=== PATIENT | female | born 1960 | race Caucasian/White ===

== ENCOUNTER 2017-03-04 20:04 | Inpatient (IN) | payer MEDICAID, OTHER ==
[~2017-03-04] VITALS: Ht 147.3 cm; Wt 59.0 kg
[~2017-03-04 20:04] MED LIST: BENZ1TAB10 PO; LEVO25TA9 PO; PROP10TA73 PO; RISP3 PO
[2017-03-04 20:46] LABS: ANION GAP 9 mmol/L (8-16); CALCIUM, TOTAL 8.4 mg/dL (8.8-10.5); CARBON DIOXIDE 28 mmol/L (22-29); CHLORIDE 103 mmol/L (98-107); CREATININE 0.71 mg/dL (0.60-1.30); GLOMERULAR FILTR. RATE CALC > 60 mL/min (>60); POTASSIUM 3.7 mmol/L (3.5-5.1); SODIUM SERUM 140 mmol/L (136-145); UREA NITROGEN, BLOOD 12 mg/dL (7-18)
[2017-03-04 20:47] LABS: BASOPHILS % (AUTO) 0.9 % (0.0-2.0); EOSINOPHILS % (AUTO) 7.6 % (1.0-6.0); HEMATOCRIT 36.7 % (36-46); HEMOGLOBIN 12.6 g/dL (12.0-16.0); LYMPHOCYTES # (AUTO) 1.7 K/uL (1.0-4.8); LYMPHOCYTES % (AUTO) 30.6 % (22.0-44.0); MEAN CORPUSCULAR HEMOGLOBIN 31.9 pg (26.0-34.0); MEAN CORPUSCULAR HGB CONC 34.2 G/dL (31.0-37.0); MEAN CORPUSCULAR VOLUME 93 fL (80-100); MONOCYTES # (AUTO) 0.5 K/uL (0.1-1.0); MONOCYTES % (AUTO) 9.4 % (2.0-9.0); NEUTROPHILS # (AUTO) 2.9 K/uL (1.8-7.7); NEUTROPHILS % (AUTO) 51.5 % (40.0-70.0); PLATELET COUNT (AUTO) 408 K/uL (150-450); RED BLOOD CELL COUNT(AUTO) 3.95 MIL/uL (4.00-5.20); RED CELL DISTRIBUTION WIDTH 12.7 % (11.5-14.5); WHITE BLOOD COUNT (AUTO) 5.6 K/uL (4.5-11.0)
[2017-03-04 20:54] LABS: ALANINE AMINOTRANSFERASE 20 U/L (12-78); ALBUMIN 3.9 g/dL (3.4-5.0); ASPARTATE AMINOTRANSFERASE 16 U/L (15-37); BILIRUBIN,TOTAL 0.3 mg/dL (0.1-1.0); TOTAL PROTEIN, SERUM 7.7 g/dL (6.4-8.2)
[2017-03-04 23:37] LABS: APPEARANCE,URINE CLEAR (CLEAR); GLUCOSE, URINE (UA) NEGATIVE (NEGATIVE); KETONES,URINE NEGATIVE (NEGATIVE); LEUKOCYTE ESTERASE ,URINE NEGATIVE (NEGATIVE); OCCULT BLOOD,URINE NEGATIVE (NEGATIVE); PH,URINE 5.5 (5.0-8.0); PROTEIN,URINE NEGATIVE (NEGATIVE)
[2017-03-04 23:41] LABS: ADD UA MICROSCOPIC NO
[2017-03-05] MEDS: ZOLPIDEM TARTRATE 10 MG TABLET PO PRN (01:00)
[2017-03-05] MEDS: HALOPERIDOL 5 MG TABLET PO PRN (01:03)
[2017-03-05 01:07] VITALS: BP 125/88
[2017-03-05 01:27] VITALS: BP 125/88
[2017-03-05] MEDS: LORazepam 2 MG TABLET PO PRN (03:34)
[2017-03-05] MEDS ORDERED: PNEUMOCOCCAL VACCINE POLYVALENT 0.5 ML VIAL [PPSV23] IM ONE (03:45)
[2017-03-05] MEDS ORDERED: CloNIDine HCL 0.1 MG TABLET PO PRN (10:00)
[2017-03-05] MEDS ORDERED: LOPERAMIDE HCL 2 MG CAPSULE PO PRN (10:00)
[2017-03-05] MEDS ORDERED: MAGNESIUM HYDROXIDE SUSPENSION 30 ML UDCUP PO PRN (10:00)
[2017-03-05] MEDS ORDERED: ALBUTEROL SULFATE HFA 90 MCG/PUFF 8 GM INHALER IH PRN (10:00)
[2017-03-05] MEDS ORDERED: BACITRACIN 28.4 GM OINTMENT TP PRN (10:00)
[2017-03-05] MEDS ORDERED: PETROLATUM,WHITE 71 GM JELLY TP PRN (10:00)
[2017-03-05] MEDS ORDERED: BENZOCAINE/MENTHOL LOZENGE [8 LOZENGES/PACKET] MM PRN (10:00)
[2017-03-05] MEDS ORDERED: ONDANSETRON HCL 4 MG TABLET PO PRN (10:00)
[2017-03-05 10:43] VITALS: BP 140/71
[2017-03-05] MEDS: IBUPROFEN 600 MG TABLET PO PRN (12:34)
[2017-03-05] MEDS: RisperiDONE 3 MG TABLET PO SCH (16:37)
[2017-03-05] MEDS: BENZTROPINE MESYLATE 1 MG TABLET PO SCH (16:37)
[2017-03-06] MEDS: ZOLPIDEM TARTRATE 10 MG TABLET PO PRN (00:30)
[2017-03-06] MEDS: LORazepam 2 MG TABLET PO PRN ×3 (00:30→16:37)
[2017-03-06 00:55] VITALS: BP 135/65
[2017-03-06] MEDS: LEVOTHYROXINE SODIUM 25 MCG TABLET PO SCH (06:54)
[2017-03-06 08:00] VITALS: BP 126/90
[2017-03-06] MEDS: BENZTROPINE MESYLATE 1 MG TABLET PO SCH ×2 (08:13→16:10)
[2017-03-06] MEDS: RisperiDONE 3 MG TABLET PO SCH ×2 (08:13→16:10)
[2017-03-06] MEDS: IBUPROFEN 600 MG TABLET PO PRN ×2 (10:42→21:58)
[2017-03-06 13:29] VITALS: BP 116/75
[2017-03-06 16:19] VITALS: BP 118/62
[2017-03-07 02:47] VITALS: BP 136/90
[2017-03-07] MEDS: ZOLPIDEM TARTRATE 10 MG TABLET PO PRN (02:49)
[2017-03-07] MEDS: IBUPROFEN 600 MG TABLET PO PRN ×3 (05:11→20:24)
[2017-03-07] MEDS: LEVOTHYROXINE SODIUM 25 MCG TABLET PO SCH (06:15)
[2017-03-07] MEDS: LORazepam 2 MG TABLET PO PRN ×2 (08:25→12:37)
[2017-03-07] MEDS: BENZTROPINE MESYLATE 1 MG TABLET PO SCH ×2 (08:25→15:53)
[2017-03-07] MEDS: RisperiDONE 3 MG TABLET PO SCH ×2 (08:25→15:53)
[2017-03-07 09:00] VITALS: BP 107/60
[2017-03-07] MEDS: MAG HYDROX/AL HYDROX/SIMETH ES 30 ML SUSPENSION UDCUP PO PRN (12:37)
[2017-03-07 16:13] VITALS: BP 111/66
[2017-03-07 20:22] VITALS: BP 114/66
[2017-03-07 21:24] VITALS: BP 112/68
[2017-03-08 00:51] VITALS: BP 139/62
[2017-03-08] MEDS: ZOLPIDEM TARTRATE 10 MG TABLET PO PRN ×2 (00:52→22:50)
[2017-03-08] MEDS: MAG HYDROX/AL HYDROX/SIMETH ES 30 ML SUSPENSION UDCUP PO PRN (01:21)
[2017-03-08] MEDS: IBUPROFEN 600 MG TABLET PO PRN ×2 (05:32→16:43)
[2017-03-08] MEDS: LEVOTHYROXINE SODIUM 25 MCG TABLET PO SCH (06:36)
[2017-03-08] MEDS: BENZTROPINE MESYLATE 1 MG TABLET PO SCH ×2 (08:42→16:43)
[2017-03-08] MEDS: RisperiDONE 3 MG TABLET PO SCH ×2 (08:42→16:43)
[2017-03-08 09:00] VITALS: BP 113/68
[2017-03-08 16:00] VITALS: BP 138/81
[2017-03-08] MEDS: LORazepam 2 MG TABLET PO PRN (16:43)
[2017-03-09] MEDS: LORazepam 2 MG TABLET PO PRN (04:05)
[2017-03-09] MEDS: LEVOTHYROXINE SODIUM 25 MCG TABLET PO SCH (06:30)
[2017-03-09 06:40] VITALS: BP 118/78
[2017-03-09 08:55] VITALS: BP 118/63
[2017-03-09] MEDS: RisperiDONE 3 MG TABLET PO SCH ×2 (09:56→16:25)
[2017-03-09] MEDS: BENZTROPINE MESYLATE 1 MG TABLET PO SCH ×2 (09:56→16:25)
[2017-03-09 16:40] VITALS: BP 121/62
[2017-03-10 02:49] VITALS: BP 113/82
[2017-03-10] MEDS: IBUPROFEN 600 MG TABLET PO PRN ×3 (02:52→21:26)
[2017-03-10] MEDS: LEVOTHYROXINE SODIUM 25 MCG TABLET PO SCH (06:30)
[2017-03-10 08:10] VITALS: BP 113/78
[2017-03-10] MEDS: BENZTROPINE MESYLATE 1 MG TABLET PO SCH ×2 (10:27→16:18)
[2017-03-10] MEDS: RisperiDONE 3 MG TABLET PO SCH ×2 (10:27→16:18)
[2017-03-10 16:00] VITALS: BP 120/75
[2017-03-10] MEDS: LORazepam 2 MG TABLET PO PRN (16:18)
[2017-03-10] MEDS: ZOLPIDEM TARTRATE 10 MG TABLET PO PRN (21:26)
[2017-03-11 05:43] VITALS: BP 117/75
[2017-03-11] MEDS: LEVOTHYROXINE SODIUM 25 MCG TABLET PO SCH (06:30)
[2017-03-11] MEDS: IBUPROFEN 600 MG TABLET PO PRN (06:32)
[2017-03-11 08:00] VITALS: BP 133/57
[2017-03-11] MEDS: BENZTROPINE MESYLATE 1 MG TABLET PO SCH ×2 (09:00→16:51)
[2017-03-11] MEDS: RisperiDONE 3 MG TABLET PO SCH ×2 (09:00→16:51)
[2017-03-11 16:00] VITALS: BP 114/68
[2017-03-11] MEDS: LORazepam 2 MG TABLET PO PRN (16:54)
[2017-03-11] MEDS: ZOLPIDEM TARTRATE 10 MG TABLET PO PRN (22:12)
[2017-03-12 05:53] VITALS: BP 128/65
[2017-03-12] MEDS: IBUPROFEN 600 MG TABLET PO PRN ×2 (05:55→14:33)
[2017-03-12] MEDS: LEVOTHYROXINE SODIUM 25 MCG TABLET PO SCH (05:57)
[2017-03-12 08:24] VITALS: BP 109/69
[2017-03-12] MEDS: BENZTROPINE MESYLATE 1 MG TABLET PO SCH ×2 (08:30→16:27)
[2017-03-12] MEDS: RisperiDONE 3 MG TABLET PO SCH ×2 (08:30→16:27)
[2017-03-12 14:33] VITALS: BP 110/86
[2017-03-12 16:18] VITALS: BP 112/68
[2017-03-13] MEDS: IBUPROFEN 600 MG TABLET PO PRN ×2 (04:45→18:37)
[2017-03-13 04:47] VITALS: BP 11/68
[2017-03-13] MEDS: LEVOTHYROXINE SODIUM 25 MCG TABLET PO SCH (06:59)
[2017-03-13 08:13] VITALS: BP 109/64
[2017-03-13] MEDS: BENZTROPINE MESYLATE 1 MG TABLET PO SCH ×2 (10:12→16:27)
[2017-03-13] MEDS: RisperiDONE 3 MG TABLET PO SCH ×2 (10:12→16:27)
[2017-03-13 16:07] VITALS: BP 115/84
[2017-03-13] MEDS: LORazepam 2 MG TABLET PO PRN (16:27)
[2017-03-13 18:38] VITALS: BP 118/75
[2017-03-14 03:24] VITALS: BP 114/67
[2017-03-14] MEDS: LEVOTHYROXINE SODIUM 25 MCG TABLET PO SCH (06:31)
[2017-03-14 08:22] VITALS: BP 99/64
[2017-03-14] MEDS: BENZTROPINE MESYLATE 1 MG TABLET PO SCH ×2 (08:50→16:21)
[2017-03-14] MEDS: RisperiDONE 3 MG TABLET PO SCH ×2 (08:50→16:21)
[2017-03-14 08:51] VITALS: BP 102/70
[2017-03-14] MEDS: IBUPROFEN 600 MG TABLET PO PRN ×2 (08:51→18:41)
[2017-03-14] MEDS: LORazepam 2 MG TABLET PO PRN (16:21)
[2017-03-14 18:40] VITALS: BP 139/99
[2017-03-14] MEDS: HALOPERIDOL 5 MG TABLET PO PRN (18:42)
[2017-03-14 21:24] VITALS: BP 132/88
[2017-03-14] MEDS: ACETAMINOPHEN 325 MG TABLET PO PRN (21:26)
[2017-03-15 06:05] VITALS: BP 108/61
[2017-03-15] MEDS: LORazepam 2 MG TABLET PO PRN ×2 (06:07→16:27)
[2017-03-15] MEDS: HALOPERIDOL 5 MG TABLET PO PRN (06:07)
[2017-03-15] MEDS: IBUPROFEN 600 MG TABLET PO PRN (06:07)
[2017-03-15] MEDS: LEVOTHYROXINE SODIUM 25 MCG TABLET PO SCH (06:39)
[2017-03-15 08:12] VITALS: BP 99/48
[2017-03-15] MEDS: BENZTROPINE MESYLATE 1 MG TABLET PO SCH ×2 (09:02→16:27)
[2017-03-15] MEDS: RisperiDONE 3 MG TABLET PO SCH ×2 (09:02→16:27)
[2017-03-15 16:11] VITALS: BP 113/65
[2017-03-16 02:26] VITALS: BP 138/68
[2017-03-16] MEDS: IBUPROFEN 600 MG TABLET PO PRN (02:31)
[2017-03-16] MEDS: LORazepam 2 MG TABLET PO PRN (02:31)
[2017-03-16] MEDS: ACETAMINOPHEN 325 MG TABLET PO PRN (06:10)
[2017-03-16] MEDS: LEVOTHYROXINE SODIUM 25 MCG TABLET PO SCH (06:10)
[2017-03-16 08:00] VITALS: BP 89/55
[2017-03-16] MEDS: RisperiDONE 3 MG TABLET PO SCH ×2 (08:41→16:06)
[2017-03-16] MEDS: BENZTROPINE MESYLATE 1 MG TABLET PO SCH ×2 (08:41→16:06)
[2017-03-16 16:14] VITALS: BP 120/67
[2017-03-17 01:33] VITALS: BP 103/64
[2017-03-17] MEDS: IBUPROFEN 600 MG TABLET PO PRN ×2 (01:47→14:04)
[2017-03-17] MEDS: ZOLPIDEM TARTRATE 10 MG TABLET PO PRN (01:47)
[2017-03-17] MEDS: LEVOTHYROXINE SODIUM 25 MCG TABLET PO SCH (06:25)
[2017-03-17 08:55] VITALS: BP 103/59
[2017-03-17] MEDS: BENZTROPINE MESYLATE 1 MG TABLET PO SCH ×2 (08:55→16:17)
[2017-03-17] MEDS: RisperiDONE 3 MG TABLET PO SCH ×2 (08:55→16:17)
[2017-03-17 14:00] VITALS: BP 110/66
[2017-03-17 15:04] VITALS: BP 106/68
[2017-03-17 16:14] VITALS: BP 110/77
[2017-03-17] MEDS: LORazepam 2 MG TABLET PO PRN (17:55)
[2017-03-18 04:06] VITALS: BP 111/63
[2017-03-18] MEDS: IBUPROFEN 600 MG TABLET PO PRN (04:17)
[2017-03-18] MEDS: LEVOTHYROXINE SODIUM 25 MCG TABLET PO SCH (06:15)
[2017-03-18 08:36] VITALS: BP 100/68
[2017-03-18] MEDS: BENZTROPINE MESYLATE 1 MG TABLET PO SCH ×2 (08:41→16:23)
[2017-03-18] MEDS: RisperiDONE 3 MG TABLET PO SCH ×2 (09:20→16:24)
[2017-03-18] MEDS: LORazepam 2 MG TABLET PO PRN ×2 (11:45→16:24)
[2017-03-18 16:00] VITALS: BP 101/68
[2017-03-19 03:39] VITALS: BP 103/61
[2017-03-19] MEDS: IBUPROFEN 600 MG TABLET PO PRN ×2 (03:48→16:34)
[2017-03-19] MEDS: LEVOTHYROXINE SODIUM 25 MCG TABLET PO SCH (06:15)
[2017-03-19] MEDS: RisperiDONE 3 MG TABLET PO SCH ×2 (08:53→16:34)
[2017-03-19] MEDS: BENZTROPINE MESYLATE 1 MG TABLET PO SCH ×2 (08:53→16:34)
[2017-03-19 08:59] VITALS: BP 100/58
[2017-03-19 16:34] VITALS: BP 112/63
[2017-03-19] MEDS: LORazepam 2 MG TABLET PO PRN (18:01)
[2017-03-20] MEDS: IBUPROFEN 600 MG TABLET PO PRN ×2 (02:41→16:29)
[2017-03-20 02:42] VITALS: BP 107/71
[2017-03-20] MEDS: LEVOTHYROXINE SODIUM 25 MCG TABLET PO SCH (06:15)
[2017-03-20 08:39] VITALS: BP 100/56
[2017-03-20] MEDS: RisperiDONE 3 MG TABLET PO SCH ×2 (09:50→17:50)
[2017-03-20] MEDS: BENZTROPINE MESYLATE 1 MG TABLET PO SCH ×2 (09:50→17:50)
[2017-03-20 16:29] VITALS: BP 124/73
[2017-03-20] MEDS: LORazepam 2 MG TABLET PO PRN (18:57)
[2017-03-21 05:32] VITALS: BP 101/72
[2017-03-21] MEDS: LEVOTHYROXINE SODIUM 25 MCG TABLET PO SCH (05:34)
[2017-03-21] MEDS: IBUPROFEN 600 MG TABLET PO PRN (05:34)
[2017-03-21 08:32] VITALS: BP 112/67
[2017-03-21] MEDS: RisperiDONE 3 MG TABLET PO SCH ×2 (08:32→16:27)
[2017-03-21] MEDS: LORazepam 2 MG TABLET PO PRN ×2 (08:32→16:28)
[2017-03-21] MEDS: BENZTROPINE MESYLATE 1 MG TABLET PO SCH ×2 (08:32→16:27)
[2017-03-21 16:14] VITALS: BP 101/75
[2017-03-22] MEDS: LORazepam 2 MG TABLET PO PRN ×3 (02:41→16:21)
[2017-03-22] MEDS: IBUPROFEN 600 MG TABLET PO PRN (02:42)
[2017-03-22 02:43] VITALS: BP 123/63
[2017-03-22] MEDS: LEVOTHYROXINE SODIUM 25 MCG TABLET PO SCH (06:28)
[2017-03-22 08:20] VITALS: BP 122/71
[2017-03-22] MEDS: RisperiDONE 3 MG TABLET PO SCH ×2 (08:28→16:20)
[2017-03-22] MEDS: BENZTROPINE MESYLATE 1 MG TABLET PO SCH ×2 (08:28→16:20)
[2017-03-22 16:30] VITALS: BP 119/79
[2017-03-23] MEDS: LEVOTHYROXINE SODIUM 25 MCG TABLET PO SCH (06:17)
[2017-03-23 07:33] VITALS: BP 124/72
[2017-03-23 09:10] VITALS: BP 92/63
[2017-03-23] MEDS: RisperiDONE 3 MG TABLET PO SCH ×2 (09:53→16:10)
[2017-03-23] MEDS: BENZTROPINE MESYLATE 1 MG TABLET PO SCH ×2 (09:53→16:10)
[2017-03-23] MEDS: IBUPROFEN 600 MG TABLET PO PRN (11:20)
[2017-03-23] MEDS: LORazepam 2 MG TABLET PO PRN (16:13)
[2017-03-23 16:16] VITALS: BP 112/65
[2017-03-24 05:03] VITALS: BP 134/72
[2017-03-24] MEDS: IBUPROFEN 600 MG TABLET PO PRN ×2 (05:20→16:27)
[2017-03-24] MEDS: LEVOTHYROXINE SODIUM 75 MCG TABLET PO SCH (07:16)
[2017-03-24 08:14] VITALS: BP 137/87
[2017-03-24] MEDS: RisperiDONE 3 MG TABLET PO SCH ×2 (08:56→17:06)
[2017-03-24] MEDS: BENZTROPINE MESYLATE 1 MG TABLET PO SCH ×2 (08:56→17:06)
[2017-03-24 16:11] VITALS: BP 127/73
[2017-03-24 17:27] VITALS: BP 124/75
[2017-03-24 20:04] VITALS: BP 122/76
[2017-03-24] MEDS: ACETAMINOPHEN 325 MG TABLET PO PRN (20:06)
[2017-03-24] MEDS: ZOLPIDEM TARTRATE 10 MG TABLET PO PRN (20:59)
[2017-03-25 06:10] VITALS: BP 116/73
[2017-03-25] MEDS: IBUPROFEN 600 MG TABLET PO PRN ×2 (06:13→20:25)
[2017-03-25] MEDS: LEVOTHYROXINE SODIUM 75 MCG TABLET PO SCH (06:53)
[2017-03-25 08:49] VITALS: BP 102/53
[2017-03-25] MEDS: BENZTROPINE MESYLATE 1 MG TABLET PO SCH ×2 (09:44→16:12)
[2017-03-25] MEDS: RisperiDONE 3 MG TABLET PO SCH ×2 (09:44→16:12)
[2017-03-25] MEDS: LORazepam 2 MG TABLET PO PRN (09:45)
[2017-03-25 16:20] VITALS: BP 113/69
[2017-03-25 20:23] VITALS: BP 112/70
[2017-03-26 05:24] VITALS: BP 125/86
[2017-03-26] MEDS: IBUPROFEN 600 MG TABLET PO PRN ×2 (05:45→16:02)
[2017-03-26] MEDS: LEVOTHYROXINE SODIUM 75 MCG TABLET PO SCH (06:50)
[2017-03-26 08:17] VITALS: BP 99/57
[2017-03-26] MEDS: BENZTROPINE MESYLATE 1 MG TABLET PO SCH ×2 (08:20→16:02)
[2017-03-26] MEDS: RisperiDONE 3 MG TABLET PO SCH ×2 (08:20→16:02)
[2017-03-26 10:45] VITALS: BP 118/70
[2017-03-26] MEDS: ACETAMINOPHEN 325 MG TABLET PO PRN (10:49)
[2017-03-26 16:03] VITALS: BP 109/75
[2017-03-26] MEDS: LORazepam 2 MG TABLET PO PRN (20:11)
[2017-03-27 01:53] VITALS: BP 120/70
[2017-03-27] MEDS: IBUPROFEN 600 MG TABLET PO PRN ×3 (01:56→17:01)
[2017-03-27] MEDS: LEVOTHYROXINE SODIUM 75 MCG TABLET PO SCH (06:46)
[2017-03-27] MEDS: RisperiDONE 3 MG TABLET PO SCH ×2 (08:13→17:02)
[2017-03-27] MEDS: BENZTROPINE MESYLATE 1 MG TABLET PO SCH ×2 (08:13→17:01)
[2017-03-27 08:23] VITALS: BP 122/61
[2017-03-27 16:11] VITALS: BP 122/81
[2017-03-27] MEDS: LORazepam 2 MG TABLET PO PRN (20:19)
[2017-03-28 06:20] VITALS: BP 126/75
[2017-03-28] MEDS: LEVOTHYROXINE SODIUM 75 MCG TABLET PO SCH (06:23)
[2017-03-28] MEDS: IBUPROFEN 600 MG TABLET PO PRN ×3 (06:23→20:38)
[2017-03-28 08:06] VITALS: BP 104/65
[2017-03-28] MEDS: RisperiDONE 3 MG TABLET PO SCH ×2 (08:29→16:44)
[2017-03-28] MEDS: LORazepam 2 MG TABLET PO PRN (08:29)
[2017-03-28] MEDS: BENZTROPINE MESYLATE 1 MG TABLET PO SCH ×2 (08:29→16:44)
[2017-03-28 16:12] VITALS: BP 135/74
[2017-03-28] MEDS: ACETAMINOPHEN 325 MG TABLET PO PRN (16:46)
[2017-03-28 19:03] VITALS: BP 135/74
[2017-03-28] MEDS: ZOLPIDEM TARTRATE 10 MG TABLET PO PRN (20:38)
[2017-03-29 03:20] VITALS: BP 112/82
[2017-03-29] MEDS: IBUPROFEN 600 MG TABLET PO PRN ×2 (03:22→10:29)
[2017-03-29] MEDS: LEVOTHYROXINE SODIUM 75 MCG TABLET PO SCH (06:30)
[2017-03-29 08:22] VITALS: BP 108/61
[2017-03-29] MEDS: RisperiDONE 3 MG TABLET PO SCH ×2 (08:23→16:32)
[2017-03-29] MEDS: BENZTROPINE MESYLATE 1 MG TABLET PO SCH ×2 (08:23→16:33)
[2017-03-29 10:29] VITALS: BP 110/70
[2017-03-29] MEDS: LORazepam 2 MG TABLET PO PRN (11:44)
[2017-03-29 16:07] VITALS: BP 113/68
[2017-03-29] MEDS: ZOLPIDEM TARTRATE 10 MG TABLET PO PRN (23:16)
[2017-03-30 05:29] VITALS: BP 121/93
[2017-03-30] MEDS: IBUPROFEN 600 MG TABLET PO PRN ×3 (05:31→23:02)
[2017-03-30] MEDS: LORazepam 2 MG TABLET PO PRN ×2 (05:31→18:25)
[2017-03-30] MEDS: LEVOTHYROXINE SODIUM 75 MCG TABLET PO SCH (06:38)
[2017-03-30 08:12] VITALS: BP 117/96
[2017-03-30] MEDS: BENZTROPINE MESYLATE 1 MG TABLET PO SCH ×2 (08:16→16:14)
[2017-03-30] MEDS: RisperiDONE 3 MG TABLET PO SCH ×2 (09:05→16:14)
[2017-03-30] MEDS: LIDOCAINE HCL 5% TRANSDERMAL PATCH TD SCH (11:50)
[2017-03-30 16:11] VITALS: BP 110/73
[2017-03-30] MEDS: -LIDODERM PATCH NOTE- MISC SCH ×2 (20:07)
[2017-03-31 05:35] VITALS: BP 118/66
[2017-03-31] MEDS: IBUPROFEN 600 MG TABLET PO PRN (05:36)
[2017-03-31] MEDS: LEVOTHYROXINE SODIUM 75 MCG TABLET PO SCH (06:39)
[2017-03-31 08:09] VITALS: BP 98/60
[2017-03-31] MEDS: RisperiDONE 3 MG TABLET PO SCH ×2 (08:28→16:28)
[2017-03-31] MEDS: BENZTROPINE MESYLATE 1 MG TABLET PO SCH ×2 (08:28→16:28)
[2017-03-31] MEDS: LIDOCAINE HCL 5% TRANSDERMAL PATCH TD SCH (08:34)
[2017-03-31 16:09] VITALS: BP 124/60
[2017-03-31] MEDS: LORazepam 2 MG TABLET PO PRN (16:28)
[2017-03-31] MEDS: -LIDODERM PATCH NOTE- MISC SCH ×2 (20:52)
[2017-04-01 05:33] VITALS: BP 117/67
[2017-04-01] MEDS: IBUPROFEN 600 MG TABLET PO PRN ×3 (05:41→23:30)
[2017-04-01] MEDS: LORazepam 2 MG TABLET PO PRN ×2 (05:41→16:10)
[2017-04-01] MEDS: LEVOTHYROXINE SODIUM 75 MCG TABLET PO SCH (06:52)
[2017-04-01 08:10] VITALS: BP 112/69
[2017-04-01] MEDS: BENZTROPINE MESYLATE 1 MG TABLET PO SCH ×2 (08:16→16:10)
[2017-04-01] MEDS: RisperiDONE 3 MG TABLET PO SCH ×2 (08:17→16:10)
[2017-04-01] MEDS: LIDOCAINE HCL 5% TRANSDERMAL PATCH TD SCH (08:21)
[2017-04-01 16:16] VITALS: BP 110/60
[2017-04-01] MEDS: -LIDODERM PATCH NOTE- MISC SCH ×2 (21:06)
[2017-04-01] MEDS: ZOLPIDEM TARTRATE 10 MG TABLET PO PRN (23:30)
[2017-04-02 00:30] VITALS: BP 125/80
[2017-04-02] MEDS: LEVOTHYROXINE SODIUM 75 MCG TABLET PO SCH (06:58)
[2017-04-02] MEDS: CHOLECALCIFEROL (VIT D3) 1,000 UNITS TABLET PO SCH (08:02)
[2017-04-02] MEDS: BENZTROPINE MESYLATE 1 MG TABLET PO SCH ×2 (08:02→16:17)
[2017-04-02] MEDS: RisperiDONE 3 MG TABLET PO SCH ×2 (08:03→16:17)
[2017-04-02] MEDS: LIDOCAINE HCL 5% TRANSDERMAL PATCH TD SCH (08:08)
[2017-04-02 08:22] LABS: HEMATOCRIT 37.8 % (36-46); HEMOGLOBIN 12.9 g/dL (12.0-16.0); MEAN CORPUSCULAR HEMOGLOBIN 31.6 pg (26.0-34.0); MEAN CORPUSCULAR HGB CONC 34.1 G/dL (31.0-37.0); MEAN CORPUSCULAR VOLUME 93 fL (80-100); PLATELET COUNT (AUTO) 326 K/uL (150-450); RED BLOOD CELL COUNT(AUTO) 4.09 MIL/uL (4.00-5.20); WHITE BLOOD COUNT (AUTO) 4.1 K/uL (4.5-11.0)
[2017-04-02 08:57] VITALS: BP 102/61
[2017-04-02 09:05] LABS: ANION GAP 3 mmol/L (8-16); CALCIUM, TOTAL 8.9 mg/dL (8.8-10.5); CARBON DIOXIDE 31 mmol/L (22-29); CHLORIDE 102 mmol/L (98-107); CREATININE 0.65 mg/dL (0.60-1.30); GLOMERULAR FILTR. RATE CALC > 60 mL/min (>60); POTASSIUM 3.9 mmol/L (3.5-5.1); SODIUM SERUM 136 mmol/L (136-145); THYROID STIMULATING HORMONE 2.44 uIU/mL (0.36-3.74); UREA NITROGEN, BLOOD 17 mg/dL (7-18)
[2017-04-02 09:16] LABS: BASOPHILS % (MANUAL) 1 % (0-2); EOSINOPHILS % (MANUAL) 7 % (1-6); LYMPHOCYTES % (MANUAL) 33 % (22-44); TOTAL CELLS COUNTED 100
[2017-04-02] MEDS: LORazepam 2 MG TABLET PO PRN ×2 (13:59→18:00)
[2017-04-02 14:00] VITALS: BP 110/66
[2017-04-02 16:08] VITALS: BP 107/67
[2017-04-02] MEDS: MAGNESIUM OXIDE 400 MG TABLET PO SCH (16:17)
[2017-04-02] MEDS: -LIDODERM PATCH NOTE- MISC SCH ×2 (21:10)
[2017-04-03 04:05] VITALS: BP 127/84
[2017-04-03] MEDS: IBUPROFEN 600 MG TABLET PO PRN (04:05)
[2017-04-03] MEDS: LEVOTHYROXINE SODIUM 75 MCG TABLET PO SCH (06:42)
[2017-04-03 08:26] VITALS: BP 107/71
[2017-04-03] MEDS: RisperiDONE 3 MG TABLET PO SCH (09:18)
[2017-04-03] MEDS: MAGNESIUM OXIDE 400 MG TABLET PO SCH (09:19)
[2017-04-03] MEDS: CHOLECALCIFEROL (VIT D3) 1,000 UNITS TABLET PO SCH (09:19)
[2017-04-03] MEDS: BENZTROPINE MESYLATE 1 MG TABLET PO SCH (09:19)
[2017-04-03] MEDS: LIDOCAINE HCL 5% TRANSDERMAL PATCH TD SCH (09:19)
[2017-04-03] MEDS ORDERED: VITAD1000 PO (11:24)
[2017-04-03] MEDS ORDERED: MAGOX PO (11:24)
== END 2017-04-03 13:13 | disposition home or self-care (01) | DRG 750 ==
LOC: EMS 20:06 → 3EC 03-05 → UNDOADMIN 03-05 → MERGE 03-05 → B3A 03-06 13:00
PROVIDERS: ADMIT Psychiatry & Neurology Psychiatry; ATTEND Psychiatry & Neurology Psychiatry
DX: F20.0 Paranoid schizophrenia (principal); F15.10 Other stimulant abuse, uncomplicated; F12.90 Cannabis use, unspecified, uncomplicated; K21.9 Gastro-esophageal reflux disease without esophagitis; G47.00 Insomnia, unspecified; F17.200 Nicotine dependence, unspecified, uncomplicated; E03.9 Hypothyroidism, unspecified; J44.9 Chronic obstructive pulmonary disease, unspecified; Z71.51 Drug abuse counseling and surveillance of drug abuser; M54.5 Low back pain; Z71.6 Tobacco abuse counseling; R07.9 Chest pain, unspecified
CPT/HCPCS: 82306; 83735; 84100; 84443; 85007; 87081; 99285; G0480

== ENCOUNTER 2017-05-30 18:10 | Inpatient (IN) | payer MEDICAID, OTHER ==
[~2017-05-30] VITALS: Ht 149.9 cm; Wt 45.5 kg
[~2017-05-30 18:10] MED LIST changes: +MAGOX PO; -PROP10TA73 PO; +VITAD1000 PO
[2017-05-30 18:40] LABS: BASOPHILS % (AUTO) 0.1 % (0.0-2.0); EOSINOPHILS % (AUTO) 2.7 % (1.0-6.0); HEMATOCRIT 39.1 % (36-46); HEMOGLOBIN 13.6 g/dL (12.0-16.0); LYMPHOCYTES # (AUTO) 1.7 K/uL (1.0-4.8); LYMPHOCYTES % (AUTO) 14.3 % (22.0-44.0); MEAN CORPUSCULAR HEMOGLOBIN 31.7 pg (26.0-34.0); MEAN CORPUSCULAR HGB CONC 34.8 G/dL (31.0-37.0); MEAN CORPUSCULAR VOLUME 91 fL (80-100); MONOCYTES # (AUTO) 0.7 K/uL (0.1-1.0); MONOCYTES % (AUTO) 5.9 % (2.0-9.0); NEUTROPHILS # (AUTO) 9.2 K/uL (1.8-7.7); PLATELET COUNT (AUTO) 368 K/uL (150-450); RED BLOOD CELL COUNT(AUTO) 4.29 MIL/uL (4.00-5.20); RED CELL DISTRIBUTION WIDTH 13.5 % (11.5-14.5)
[2017-05-30 18:50] LABS: ANION GAP 12 mmol/L (8-16); CALCIUM, TOTAL 8.8 mg/dL (8.8-10.5); CARBON DIOXIDE 25 mmol/L (22-29); CHLORIDE 102 mmol/L (98-107); CREATININE 0.79 mg/dL (0.60-1.30); GLOMERULAR FILTR. RATE CALC > 60 mL/min (>60); POTASSIUM 3.7 mmol/L (3.5-5.1); SODIUM SERUM 139 mmol/L (136-145); UREA NITROGEN, BLOOD 14 mg/dL (7-18)
[2017-05-30 18:56] LABS: ALANINE AMINOTRANSFERASE 26 U/L (12-78); ALBUMIN 3.8 g/dL (3.4-5.0); ASPARTATE AMINOTRANSFERASE 33 U/L (15-37); BILIRUBIN,TOTAL 0.2 mg/dL (0.1-1.0); TOTAL PROTEIN, SERUM 7.5 g/dL (6.4-8.2)
[2017-05-30] MEDS ORDERED: DiphenhydrAMINE HCL 50 MG/ML VIAL IM ONE (19:00)
[2017-05-30] MEDS ORDERED: HALOPERIDOL LACTATE 5 MG/ML VIAL IM ONE (19:00)
[2017-05-30] MEDS ORDERED: LORazepam 2 MG/ML VIAL IM ONE ×2 (19:00→20:30)
[2017-05-30 19:50] LABS: CHOL/HDL RATIO 2.8 (3.9-5.7); THYROID STIMULATING HORMONE 3.48 uIU/mL (0.36-3.74)
[2017-05-30] MEDS ORDERED: INFLUENZA VIRUS VACCINE QVS 2017-18 (3YR+)/PF 60 MCG/0.5 ML SYRINGE IM ONE (22:45)
[2017-05-31 04:33] VITALS: BP 134/78
[2017-05-31] MEDS ORDERED: LOPERAMIDE HCL 2 MG CAPSULE PO PRN (07:30)
[2017-05-31] MEDS ORDERED: BENZOCAINE/MENTHOL LOZENGE MM PRN (07:30)
[2017-05-31] MEDS ORDERED: ALBUTEROL SULFATE HFA 90 MCG/PUFF 8 GM INHALER IH PRN (07:30)
[2017-05-31] MEDS ORDERED: PETROLATUM,WHITE 71 GM JELLY TP PRN (07:30)
[2017-05-31] MEDS ORDERED: MAGNESIUM HYDROXIDE SUSPENSION 30 ML UDCUP PO PRN (07:30)
[2017-05-31] MEDS ORDERED: BACITRACIN 28.4 GM OINTMENT TP PRN (07:30)
[2017-05-31] MEDS ORDERED: MAG HYDROX/AL HYDROX/SIMETH ES 30 ML SUSPENSION UDCUP PO PRN (07:30)
[2017-05-31] MEDS ORDERED: ACETAMINOPHEN 325 MG TABLET PO PRN (07:30)
[2017-05-31] MEDS ORDERED: CloNIDine HCL 0.1 MG TABLET PO PRN (07:30)
[2017-05-31] MEDS ORDERED: ONDANSETRON HCL 4 MG TABLET PO PRN (07:30)
[2017-05-31 08:30] VITALS: BP 120/78
[2017-05-31] MEDS: BENZTROPINE MESYLATE 1 MG TABLET PO SCH ×2 (09:31→16:17)
[2017-05-31] MEDS: RisperiDONE 2 MG TABLET PO SCH ×2 (09:31→16:17)
[2017-05-31] MEDS: MULTIVITAMINS WITH MINERALS, THERAPEUTIC TABLET PO SCH (09:31)
[2017-05-31] MEDS: IBUPROFEN 600 MG TABLET PO PRN (14:22)
[2017-05-31 14:23] VITALS: BP 130/78
[2017-05-31 16:29] VITALS: BP 105/64
[2017-05-31] MEDS: ZOLPIDEM TARTRATE 10 MG TABLET PO PRN (21:01)
[2017-06-01] MEDS: LORazepam 2 MG TABLET PO PRN ×3 (03:02→13:17)
[2017-06-01 03:35] VITALS: BP 142/78
[2017-06-01] MEDS: IBUPROFEN 600 MG TABLET PO PRN (03:35)
[2017-06-01] MEDS: LEVOTHYROXINE SODIUM 25 MCG TABLET PO SCH (06:34)
[2017-06-01] MEDS: RisperiDONE 2 MG TABLET PO SCH ×2 (09:30→16:23)
[2017-06-01] MEDS: MULTIVITAMINS WITH MINERALS, THERAPEUTIC TABLET PO SCH (09:30)
[2017-06-01] MEDS: BENZTROPINE MESYLATE 1 MG TABLET PO SCH ×2 (09:30→16:23)
[2017-06-01 16:41] VITALS: BP 131/65
[2017-06-01] MEDS: ZOLPIDEM TARTRATE 10 MG TABLET PO PRN (21:17)
[2017-06-02 06:05] VITALS: BP 140/78
[2017-06-02] MEDS: LEVOTHYROXINE SODIUM 25 MCG TABLET PO SCH (06:27)
[2017-06-02] MEDS ORDERED: DiphenhydrAMINE HCL 50 MG/ML VIAL ONE (08:08)
[2017-06-02] MEDS ORDERED: HALOPERIDOL LACTATE 5 MG/ML VIAL IM ONE (08:15)
[2017-06-02] MEDS ORDERED: DiphenhydrAMINE HCL 50 MG/ML VIAL IM ONE (08:15)
[2017-06-02] MEDS ORDERED: LORazepam 2 MG/ML VIAL IM ONE (08:15)
[2017-06-02] MEDS: RisperiDONE 2 MG TABLET PO SCH ×2 (08:31→17:18)
[2017-06-02] MEDS: MULTIVITAMINS WITH MINERALS, THERAPEUTIC TABLET PO SCH (08:31)
[2017-06-02] MEDS: BENZTROPINE MESYLATE 1 MG TABLET PO SCH ×2 (08:31→17:18)
[2017-06-02 09:18] VITALS: BP 113/60
[2017-06-02] MEDS: IBUPROFEN 600 MG TABLET PO PRN (10:27)
[2017-06-02] MEDS: HALOPERIDOL 5 MG TABLET PO PRN ×2 (12:37→17:19)
[2017-06-02] MEDS: LORazepam 2 MG TABLET PO PRN ×2 (12:37→17:19)
[2017-06-02] MEDS ORDERED: BENZOCAINE 20% 11.9 GM GEL TP PRN (14:15)
[2017-06-02 16:26] VITALS: BP 126/83
[2017-06-03 06:25] VITALS: BP 125/76
[2017-06-03] MEDS: LEVOTHYROXINE SODIUM 25 MCG TABLET PO SCH (06:40)
[2017-06-03] MEDS: BENZTROPINE MESYLATE 1 MG TABLET PO SCH (08:00)
[2017-06-03] MEDS: MULTIVITAMINS WITH MINERALS, THERAPEUTIC TABLET PO SCH (08:00)
[2017-06-03] MEDS: LORazepam 2 MG TABLET PO PRN (08:08)
[2017-06-03] MEDS: RisperiDONE 2 MG TABLET PO SCH (08:08)
[2017-06-03 08:20] VITALS: BP 130/65
[2017-06-03] MEDS: IBUPROFEN 600 MG TABLET PO PRN (09:24)
[2017-06-03] MEDS: HALOPERIDOL 5 MG TABLET PO PRN (09:24)
[2017-06-03] MEDS ORDERED: RISP2 PO (12:36)
[2017-06-03] MEDS ORDERED: BENZ1TAB10 PO (12:36)
[2017-06-03] MEDS ORDERED: LEVO25TA9 PO (12:36)
== END 2017-06-03 14:20 | DRG 750 ==
LOC: EMS 18:13 → B3A 20:07
DX: F25.0 Schizoaffective disorder, bipolar type (principal); R45.851 Suicidal ideations; I10 Essential (primary) hypertension; F15.10 Other stimulant abuse, uncomplicated; E03.9 Hypothyroidism, unspecified; F12.90 Cannabis use, unspecified, uncomplicated; F17.200 Nicotine dependence, unspecified, uncomplicated; G47.00 Insomnia, unspecified; S90.821A Blister (nonthermal), right foot, initial encounter; X58.XXXA Exposure to other specified factors, initial encounter; J44.9 Chronic obstructive pulmonary disease, unspecified; K21.9 Gastro-esophageal reflux disease without esophagitis; Z79.899 Other long term (current) drug therapy; Z91.81 History of falling; Z71.51 Drug abuse counseling and surveillance of drug abuser; Z71.6 Tobacco abuse counseling; Y93.89 Activity, other specified; Y92.89 Other specified places as the place of occurrence of the external cause; Y99.8 Other external cause status
CPT/HCPCS: 84443; 90471; 96372; 99291; G0480; J1200; J1630; J2060

== ENCOUNTER 2022-01-06 14:48 | Inpatient (IN) | payer MEDICAID, OTHER ==
[~2022-01-06] VITALS: Ht 149.9 cm; Wt 84.9 kg
[~2022-01-06 14:48] MED LIST changes: -BENZ1TAB10 PO; +BENZ1TAB96 PO; +CHOL100018 PO; +MAGN400T7 PO; -MAGOX PO; +RISP2TAB45 PO; -RISP3 PO; +RISP3TAB35 PO; -VITAD1000 PO
[2022-01-06 15:53] LABS: BASOPHILS % (AUTO) 0.8 % (0.0-2.0); EOSINOPHILS % (AUTO) 3.4 % (1.0-6.0); HEMATOCRIT 35.7 % (36-46); HEMOGLOBIN 11.5 g/dL (12.0-16.0); LYMPHOCYTES # (AUTO) 1.4 K/uL (1.0-4.8); LYMPHOCYTES % (AUTO) 18.8 % (22.0-44.0); MEAN CORPUSCULAR HEMOGLOBIN 25.9 pg (26.0-34.0); MEAN CORPUSCULAR HGB CONC 32.4 G/dL (31.0-37.0); MEAN CORPUSCULAR VOLUME 80 fL (80-100); MONOCYTES # (AUTO) 0.5 K/uL (0.1-1.0); MONOCYTES % (AUTO) 6.6 % (2.0-9.0); NEUTROPHILS # (AUTO) 5.4 K/uL (1.8-7.7); NEUTROPHILS % (AUTO) 70.4 % (40.0-70.0); PLATELET COUNT (AUTO) 374 K/uL (150-450); RED BLOOD CELL COUNT(AUTO) 4.46 MIL/uL (4.00-5.20); RED CELL DISTRIBUTION WIDTH 19.7 % (11.5-14.5)
[2022-01-06 16:04] LABS: ANION GAP 6 mmol/L (8-16); CALCIUM, TOTAL 9.5 mg/dL (8.8-10.5); CARBON DIOXIDE 26 mmol/L (22-29); CHLORIDE 104 mmol/L (98-107); GLUCOSE,RANDOM 99 mg/dL (70-110); POTASSIUM 4.1 mmol/L (3.5-5.1); SODIUM SERUM 136 mmol/L (136-145); UREA NITROGEN, BLOOD 17 mg/dL (7-18)
[2022-01-06 16:06] LABS: GLOMERULAR FILTR. RATE CALC > 60 mL/min (>60)
[2022-01-06 16:10] LABS: ALANINE AMINOTRANSFERASE 22 U/L (12-78); ALBUMIN 3.2 g/dL (3.4-5.0); ALKALINE PHOSPHATASE 76 U/L (46-116); ASPARTATE AMINOTRANSFERASE 12 U/L (15-37); BILIRUBIN,TOTAL 0.1 mg/dL (0.1-1.0); TOTAL PROTEIN, SERUM 7.3 g/dL (6.4-8.2)
[2022-01-06] MEDS ORDERED: LORazepam 2 MG TABLET PO PRN (16:30)
[2022-01-06] MEDS ORDERED: ZOLPIDEM TARTRATE 10 MG TABLET PO PRN (16:30)
[2022-01-06] MEDS ORDERED: HALOPERIDOL 5 MG TABLET PO PRN (16:30)
[2022-01-06 17:31] LABS: APPEARANCE,URINE CLEAR (CLEAR); BILIRUBIN,URINE NEGATIVE (NEGATIVE); GLUCOSE, URINE (UA) NEGATIVE (NEGATIVE); KETONES,URINE NEGATIVE (NEGATIVE); LEUKOCYTE ESTERASE ,URINE LARGE (NEGATIVE); NITRATE,URINE NEGATIVE (NEGATIVE); OCCULT BLOOD,URINE NEGATIVE (NEGATIVE); PROTEIN,URINE NEGATIVE (NEGATIVE); SPECIFIC GRAVITIY, URINE 1.016 (1.003-1.030); UROBILINOGEN,URINE <=1.0 mg/dL (<=1.0)
[2022-01-06 17:49] LABS: AMPHET/METH SCREEN,URINE NEGATIVE (NEGATIVE); BARBITURATE SCREEN, URINE NEGATIVE (NEGATIVE); BENZODIAZEPINES SCREEN,URINE NEGATIVE (NEGATIVE); CANNABINOID SCREEN,URINE POSITIVE (NEGATIVE); COCAINE SCREEN,URINE NEGATIVE (NEGATIVE); METHADONE SCREEN, URINE NEGATIVE (NEGATIVE); OPIATE SCREEN,URINE NEGATIVE (NEGATIVE); PHENCYCLIDINE SCREEN,URINE NEGATIVE (NEGATIVE)
[2022-01-06 17:55] LABS: BACTERIA,URINE Moderate /HPF (None Seen); RBC,URINE 0-2 /HPF (0-2)
[2022-01-06 18:49] LABS: COVID AG,FIA SOURCE NASAL SWAB
[2022-01-06] MEDS ORDERED: PNEUMOCOCCAL VACCINE POLYVALENT 0.5 ML VIAL [PPSV23] IM. ONE (20:45)
[2022-01-07] MEDS: LEVOTHYROXINE SODIUM 75 MCG TABLET PO SCH (06:33)
[2022-01-07] MEDS ORDERED: ONDANSETRON HCL 4 MG TABLET PO PRN (07:00)
[2022-01-07] MEDS ORDERED: MAG HYDROX/AL HYDROX/SIMETH ES 30 ML SUSPENSION UDCUP PO PRN (07:00)
[2022-01-07] MEDS ORDERED: CloNIDine HCL 0.1 MG TABLET PO PRN (07:00)
[2022-01-07] MEDS ORDERED: ACETAMINOPHEN 325 MG TABLET PO PRN (07:00)
[2022-01-07] MEDS ORDERED: LOPERAMIDE HCL 2 MG CAPSULE PO PRN (07:00)
[2022-01-07] MEDS ORDERED: GuaiFENesin/D-METHORPHAN [SUGAR-FREE] 200-20MG/10 ML SYRUP UDCUP PO PRN (07:00)
[2022-01-07] MEDS ORDERED: NICOTINE 14 MG/24 HOUR PATCH TD PRN (07:00)
[2022-01-07] MEDS ORDERED: DOCUSATE SODIUM 100 MG CAPSULE PO PRN (07:00)
[2022-01-07] MEDS ORDERED: PETROLATUM,WHITE 28 GM JELLY TP PRN (07:00)
[2022-01-07] MEDS ORDERED: MAGNESIUM HYDROXIDE SUSPENSION 30 ML UDCUP PO PRN (07:00)
[2022-01-07 08:00] VITALS: BP 98/60
[2022-01-07] MEDS: CEPHALEXIN MONOHYDRATE 500 MG CAPSULE PO SCH ×3 (09:36→16:04)
[2022-01-07] MEDS: CHOLECALCIFEROL (VIT D3) 1,000 UNITS [25 MCG] TABLET PO SCH (09:36)
[2022-01-07 16:00] VITALS: BP 106/71
[2022-01-07] MEDS: BENZTROPINE MESYLATE 1 MG TABLET PO SCH (16:04)
[2022-01-07] MEDS: RisperiDONE 3 MG TABLET PO SCH (16:04)
[2022-01-07] MEDS: IBUPROFEN 400 MG TABLET PO PRN (17:48)
[2022-01-08 01:45] VITALS: BP 110/76
[2022-01-08] MEDS: LEVOTHYROXINE SODIUM 75 MCG TABLET PO SCH (06:30)
[2022-01-08] MEDS: CHOLECALCIFEROL (VIT D3) 1,000 UNITS [25 MCG] TABLET PO SCH (08:30)
[2022-01-08] MEDS: RisperiDONE 3 MG TABLET PO SCH ×2 (08:30→15:54)
[2022-01-08] MEDS: CEPHALEXIN MONOHYDRATE 500 MG CAPSULE PO SCH ×3 (08:30→15:54)
[2022-01-08] MEDS: BENZTROPINE MESYLATE 1 MG TABLET PO SCH ×2 (08:30→15:54)
[2022-01-08 09:03] VITALS: BP 120/72
[2022-01-08 16:00] VITALS: BP 122/74
[2022-01-08 16:18] VITALS: BP 122/74
[2022-01-08] MEDS: IBUPROFEN 400 MG TABLET PO PRN (22:18)
[2022-01-09] MEDS: LEVOTHYROXINE SODIUM 75 MCG TABLET PO SCH (06:24)
[2022-01-09 09:08] VITALS: BP 102/61
[2022-01-09] MEDS: CEPHALEXIN MONOHYDRATE 500 MG CAPSULE PO SCH ×3 (09:23→16:37)
[2022-01-09] MEDS: BENZTROPINE MESYLATE 1 MG TABLET PO SCH ×2 (09:24→16:37)
[2022-01-09] MEDS: RisperiDONE 3 MG TABLET PO SCH ×2 (09:24→16:37)
[2022-01-09] MEDS: CHOLECALCIFEROL (VIT D3) 1,000 UNITS [25 MCG] TABLET PO SCH (09:25)
[2022-01-09] MEDS ORDERED: PALIPERIDONE PALMITATE 156 MG/ML SYRINGE IM ONE (15:00)
[2022-01-09 16:00] VITALS: BP 133/73
[2022-01-09] MEDS: LITHIUM CARBONATE 600 MG CAPSULE PO SCH (20:33)
[2022-01-09] MEDS: IBUPROFEN 400 MG TABLET PO PRN (22:20)
[2022-01-09 22:21] VITALS: BP 129/79
[2022-01-10] MEDS: LEVOTHYROXINE SODIUM 75 MCG TABLET PO SCH (06:18)
[2022-01-10] MEDS: CEPHALEXIN MONOHYDRATE 500 MG CAPSULE PO SCH ×3 (09:53→16:12)
[2022-01-10] MEDS: RisperiDONE 3 MG TABLET PO SCH ×2 (09:53→16:12)
[2022-01-10] MEDS: CHOLECALCIFEROL (VIT D3) 1,000 UNITS [25 MCG] TABLET PO SCH (09:53)
[2022-01-10] MEDS: BENZTROPINE MESYLATE 1 MG TABLET PO SCH ×2 (09:53→16:12)
[2022-01-10 09:55] VITALS: BP 128/67
[2022-01-10 16:56] VITALS: BP 118/91
[2022-01-10] MEDS: LITHIUM CARBONATE 600 MG CAPSULE PO SCH (20:07)
[2022-01-10] MEDS: IBUPROFEN 400 MG TABLET PO PRN (20:09)
[2022-01-11] MEDS: LEVOTHYROXINE SODIUM 75 MCG TABLET PO SCH (06:08)
[2022-01-11] MEDS: CEPHALEXIN MONOHYDRATE 500 MG CAPSULE PO SCH ×3 (08:33→16:28)
[2022-01-11] MEDS: CHOLECALCIFEROL (VIT D3) 1,000 UNITS [25 MCG] TABLET PO SCH (08:33)
[2022-01-11] MEDS: RisperiDONE 3 MG TABLET PO SCH ×2 (08:33→16:28)
[2022-01-11] MEDS: BENZTROPINE MESYLATE 1 MG TABLET PO SCH ×2 (08:33→16:28)
[2022-01-11 09:06] VITALS: BP 119/66
[2022-01-11] MEDS: IBUPROFEN 400 MG TABLET PO PRN (12:12)
[2022-01-11 16:29] VITALS: BP 102/69
[2022-01-11] MEDS: LITHIUM CARBONATE 600 MG CAPSULE PO SCH (20:29)
[2022-01-12 06:07] LABS: COVID AG,FIA SOURCE NASAL SWAB
[2022-01-12] MEDS: LEVOTHYROXINE SODIUM 75 MCG TABLET PO SCH (06:23)
[2022-01-12] MEDS: BENZTROPINE MESYLATE 1 MG TABLET PO SCH ×2 (08:38→16:35)
[2022-01-12] MEDS: CHOLECALCIFEROL (VIT D3) 1,000 UNITS [25 MCG] TABLET PO SCH (08:38)
[2022-01-12] MEDS: CEPHALEXIN MONOHYDRATE 500 MG CAPSULE PO SCH ×3 (08:38→16:35)
[2022-01-12] MEDS: RisperiDONE 3 MG TABLET PO SCH ×2 (08:38→16:35)
[2022-01-12 09:26] VITALS: BP 118/67
[2022-01-12 13:29] VITALS: BP 108/72
[2022-01-12] MEDS: IBUPROFEN 400 MG TABLET PO PRN (13:29)
[2022-01-12 14:29] VITALS: BP 112/74
[2022-01-12 16:22] VITALS: BP 106/73
[2022-01-12] MEDS: LITHIUM CARBONATE 600 MG CAPSULE PO SCH (20:28)
[2022-01-13] MEDS: LEVOTHYROXINE SODIUM 75 MCG TABLET PO SCH (06:46)
[2022-01-13] MEDS: BENZTROPINE MESYLATE 1 MG TABLET PO SCH ×2 (08:31→16:28)
[2022-01-13] MEDS: CHOLECALCIFEROL (VIT D3) 1,000 UNITS [25 MCG] TABLET PO SCH (08:31)
[2022-01-13] MEDS: RisperiDONE 3 MG TABLET PO SCH ×2 (08:31→16:28)
[2022-01-13 09:21] VITALS: BP 119/85
[2022-01-13 16:24] VITALS: BP 100/54
[2022-01-13] MEDS: ALBUTEROL SULFATE HFA 90 MCG/PUFF 8 GM INHALER IH PRN (16:38)
[2022-01-13] MEDS: LITHIUM CARBONATE 600 MG CAPSULE PO SCH (20:36)
[2022-01-14] MEDS: LEVOTHYROXINE SODIUM 75 MCG TABLET PO SCH (06:26)
[2022-01-14 08:00] VITALS: BP 106/68
[2022-01-14] MEDS: BENZTROPINE MESYLATE 1 MG TABLET PO SCH ×2 (08:30→16:49)
[2022-01-14] MEDS: RisperiDONE 3 MG TABLET PO SCH ×2 (08:30→16:49)
[2022-01-14] MEDS: CHOLECALCIFEROL (VIT D3) 1,000 UNITS [25 MCG] TABLET PO SCH (08:31)
[2022-01-14] MEDS: IBUPROFEN 400 MG TABLET PO PRN (11:11)
[2022-01-14 11:12] VITALS: BP 116/69
[2022-01-14] MEDS: ALBUTEROL SULFATE HFA 90 MCG/PUFF 8 GM INHALER IH PRN (11:40)
[2022-01-14 16:00] VITALS: BP 104/65
[2022-01-14] MEDS: LITHIUM CARBONATE 600 MG CAPSULE PO SCH (20:56)
[2022-01-15] MEDS: LEVOTHYROXINE SODIUM 75 MCG TABLET PO SCH (06:47)
[2022-01-15] MEDS: RisperiDONE 3 MG TABLET PO SCH ×2 (08:19→16:33)
[2022-01-15] MEDS: CHOLECALCIFEROL (VIT D3) 1,000 UNITS [25 MCG] TABLET PO SCH (08:19)
[2022-01-15] MEDS: BENZTROPINE MESYLATE 1 MG TABLET PO SCH ×2 (08:19→16:34)
[2022-01-15 16:22] VITALS: BP 112/69
[2022-01-15] MEDS: LITHIUM CARBONATE 600 MG CAPSULE PO SCH (20:47)
[2022-01-16] MEDS: LEVOTHYROXINE SODIUM 75 MCG TABLET PO SCH (06:35)
[2022-01-16 08:00] VITALS: BP 119/69
[2022-01-16] MEDS: CHOLECALCIFEROL (VIT D3) 1,000 UNITS [25 MCG] TABLET PO SCH (08:41)
[2022-01-16] MEDS: BENZTROPINE MESYLATE 1 MG TABLET PO SCH (08:41)
[2022-01-16] MEDS: RisperiDONE 3 MG TABLET PO SCH (08:41)
[2022-01-16] MEDS ORDERED: LITH600C5 PO (09:37)
[2022-01-16] MEDS ORDERED: RISP3TAB63 PO (09:37)
[2022-01-16] MEDS ORDERED: PALI156D IM (09:37)
[2022-01-16] MEDS ORDERED: BENZ1TAB96 PO (09:37)
[2022-01-16] MEDS: IBUPROFEN 400 MG TABLET PO PRN (11:03)
[2022-02-06] MEDS ORDERED: PALIPERIDONE PALMITATE 156 MG/ML SYRINGE IM SCH (09:00)
== END 2022-01-16 14:45 | disposition home or self-care (01) | DRG 750 ==
LOC: EMS 14:53 → 3EI 16:21
PROVIDERS: ADMIT Psychiatry & Neurology Child & Adolescent Psychiatry; ATTEND Psychiatry & Neurology Child & Adolescent Psychiatry
DX: F25.0 Schizoaffective disorder, bipolar type (principal); Z91.14 Patient's other noncompliance with medication regimen; D64.9 Anemia, unspecified; E03.9 Hypothyroidism, unspecified; E66.9 Obesity, unspecified; J44.9 Chronic obstructive pulmonary disease, unspecified; K21.9 Gastro-esophageal reflux disease without esophagitis; Z20.822 Contact with and (suspected) exposure to COVID-19; Z68.37 Body mass index [BMI] 37.0-37.9, adult; Z59.00 Homelessness unspecified; Z87.891 Personal history of nicotine dependence
CPT/HCPCS: 80053; 80178; 81001; 85025; 87086; 90732; 99285; G0480; J3535